=== PATIENT | male | born 1990 | race African-American/Black ===

== ENCOUNTER 2017-03-30 13:37 | Emergency (ER) | payer SELFPAY ==
[2017-03-30] MEDS ORDERED: Chlorhexidine Gluconate 0.12% Oral Rinse 15 ML Cup MUCMEM PRN (13:59)
[2017-03-30 18:47] VITALS: BP 139/70
--- NOTE | 2017-03-31 07:14 | ER ---
Date of Service: 03/30/2017 SUBJECTIVE: Pablito presents to the emergency room with complaints of dental pain. He states that he has problems with severe dental caries and periodontal disease. He states that he has developed a dental abscess to his right upper gums. He states that he is not experiencing any fever or chills. Denies any difficulties with swallowing or managing his secretions. PAST MEDICAL HISTORY: Dental caries and tooth decay. MEDICATIONS: None. ALLERGIES: NKDA. REVIEW OF SYSTEMS: General: No fever or chills. HEENT: No sore throat, rhinorrhea, or congestion. Please see history of present illness. Cardiac: No chest pain. Respiratory: No shortness of breath. PHYSICAL EXAMINATION: General: This is a 27-year-old male, in no acute distress. Vital signs: Please see nurse's notes. Skin: Warm, pink, and dry. HEENT: Head is normocephalic and atraumatic. Eyes, PERRLA. Extraocular movements are intact. Mouth, oral mucosa is moist. No erythema or exudate noted in the hypopharynx. He does have a subcentimeter abscess to his right upper gums. The abscess was opened where the patient had attempted to drain the abscess. There was no active discharge from the abscess. He does have severe tooth decay to many of his teeth including the right upper incisor and canine. EMERGENCY ROOM COURSE: The abscess was cleansed with mucocutaneous chlorhexidine. It was subsequently anesthetized with approximately 1 mL of 1% lidocaine. Following this, a #11 blade scalpel was used to open up the abscess. A scant amount of some whitish colored discharge was expressed from the abscess. The patient tolerated this well and remained stable in my care in the emergency room. IMPRESSION: Dental infection with subsequent dental abscess. PLAN: The patient will be discharged. Tylenol and ibuprofen for discomfort. I did start him on Augmentin 875 mg 1 twice daily for 10 days. Did give him information, we freed and reduced expense dental services here in [place], as he is a transplant from [facility]. All questions were answered. MWK: 03/30/2017 17:05:24 MODL: 03/31/2017 00:07:25 /[id number]
== END 2017-03-30 14:25 | disposition home or self-care (01) ==
LOC: VM.ED 13:37
DX: K04.7 Periapical abscess without sinus (principal)
CPT/HCPCS: 41800; 99282; A9270